=== PATIENT | female | born 1935 | race American Indian/Alaskan Native ===

== ENCOUNTER 2019-07-19 08:45 | Outpatient (CLI) | payer MEDICARE ==
--- NOTE | 2019-07-19 13:13 | Magnetic Resonance Report ---
MRI LEFT KNEE WITHOUT CONTRAST INDICATION: DERANGEMENT,KNEEMINTERNAL LEFT/ Unspecified internal derangement. COMPARISON: None available. TECHNIQUE: Multiplanar, multisequence MR images were obtained. 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 No bucket-handle tear visualized. Recurrent/residual tear involving posterior horn medial meniscus. LATERAL MENISCUS: Small horizontal tear involving anterior horn lateral meniscus. DISTAL QUADRICEPS TENDON: No significant abnormality. PATELLAR TENDON: No significant abnormality. MCL: No significant abnormality. LCL: No significant abnormality. DISTAL IT BAND: No significant abnormality. POSTEROLATERAL CORNER: No significant abnormality. PATELLOFEMORAL ALIGNMENT: No significant abnormality. 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 Moderate degenerative arthrosis of patellofemoral and lateral femoral tibial compartments. JOINT SPACE: Small knee effusion and popliteal cyst. Multiple small intra-articular osteochondral bod ies. BONES: No significant bone marrow edema. No fracture. No osseous lesion. SUBCUTANEOUS SOFT TISSUES: No significant abnormality. ADDITIONAL FINDINGS: None. IMPRESSION: 1. Probable partial medial meniscectomy with small recurrent/residual tear involving posterior horn r emnant medial meniscus. 2. Small horizontal tear involving anterior horn lateral meniscus. 3. 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 4. Multiple intra-articular bodies with small knee effusion and popliteal cyst. Signer Name: Javed Abreu MD Signed: 07/19/2019 1:08 PM Workstation Name: [id number]
== END 2019-07-19 08:46 | disposition home or self-care (01) ==
LOC: MRI 08:45
PROVIDERS: ATTEND Internal Medicine
DX: M71.22 Synovial cyst of popliteal space [Baker], left knee (principal); M17.12 Unilateral primary osteoarthritis, left knee; M25.462 Effusion, left knee
CPT/HCPCS: 73721